=== PATIENT | female | born 1955 | race Caucasian/White ===

== ENCOUNTER 2019-07-03 23:00 | Emergency (ER) | payer OTHER ==
[~2019-07-03] VITALS: Ht 157.5 cm; Wt 72.6 kg
[2019-07-03 23:02] VITALS: Ht 157.5 cm; Wt 72.6 kg
[2019-07-04 00:30] VITALS: BP 120/78
== END 2019-07-04 00:27 | disposition other institution (70) ==
LOC: ED 23:00
DX: M54.9 Dorsalgia, unspecified (principal); Z13.89 Encounter for screening for other disorder

== ENCOUNTER 2019-07-03 23:30 | Emergency (ER) | payer OTHER | END 2019-07-04 00:27 | disposition other institution (70) | LOC: ED 23:30 | DX: Z02.89 Encounter for other administrative examinations (principal) ==